=== PATIENT | female | born 1970 | race Caucasian/White ===

== ENCOUNTER 2017-07-22 11:55 | Emergency (ER) | payer BC ==
[2017-07-22] MEDS ORDERED: NA CHLORIDE 0.9% 1,000 ML ONE (13:33)
[2017-07-22] MEDS ORDERED: ONDANSETRON 4 MG/2 ML VIAL ONE (13:33)
[2017-07-22 13:41] LABS: Absolute Lymphocytes (CBC) 1.1 K/uL (0.7-4.9); Absolute Neutrophil 3.7 K/uL (1.8-8.0); Basophils % 0.3 % (0-1.3); Eosinophils % 1.1 % (0-4.4); Hematocrit 38.7 % (36.0-45.0); Lymphocytes % 18.5 % (15.3-44.8); MCH 30.6 pg (27.0-35.0); MCV 93.3 fL (80-100); MPV 8.9 fL (7.6-11.3); Monocytes % 17.6 % (3.3-12.3); RBC Red Blood Cell Count 4.15 M/uL (3.86-4.86)
[2017-07-22 13:59] LABS: Potassium 3.9 mEq/L (3.6-5.0)
[2017-07-22 14:05] LABS: Albumin 3.9 g/dL (3.2-5.5); Bilirubin Direct 0.1 mg/dL (0-0.2); Bilirubin Total 0.8 mg/dL (0.3-1.2); Protein, Total 7.4 g/dL (6.0-8.3)
[2017-07-22 14:59] LABS: Urine Blood TRACE (NEG); Urine Glucose NEGATIVE (NEG); Urine Protein NEGATIVE (NEG)
[2017-07-22 15:01] LABS: Urine Bacteria <20 /HPF (<20); Urine Culture Reflex Order NOT NEEDED; Urine RBC <5 /HPF (NONE SEEN)
--- NOTE | 2017-07-22 15:22 | RAD REPORT ---
EXAM DESCRIPTION: CTAbdomen Pelvis W Contrast - 07/22/2017 3:11 pm CLINICAL HISTORY: Abdominal pain. COMPARISON: None. TECHNIQUE: Biphasic CT imaging of the abdomen and pelvis was performed with 100 ml non-ionic IV cont rast. All CT scans are performed using dose optimization technique as appropriate and may include automated exposure control or mA/KV adjustment according to patient size. FINDINGS: Several nodules are noted in the left lower lobe, the largest measuring 12 x 12 mm (image 4/96). Mild fatty liver is noted. No focal mass or biliary dilatation. The spleen, pancreas, adrenal glands and kidneys are within normal limits. No bowel obstruction, free air, free fluid or abscess. Thickening of the colon is seen throughout its course. No pneumatosis coli. The appendix is normal. No evidence of significant lymphadenopathy. No suspicious bony findings. IMPRESSION: Mild diffuse pancolitis. No pneumatosis coli, intra-abdominal/pelvic abscess or free air /free fluid. Left lower lobe pulmonary nodule (12 x 12 mm). Further assessment of this finding is warranted with f ollow-up nonemergent CT chest and/or PET-CT examination.
[2017-07-22] MEDS ORDERED: CIPROFLOXACIN 400mg IV 400 MG/200 ML BAG IV ONE (15:44)
[2017-07-22] MEDS ORDERED: METRONIDAZOLE 500mg IVPB 500 MG/100 ML BAG IV ONE (15:44)
--- NOTE | 2017-07-22 16:21 | EDPHYS ---
Physician Documentation [facility] Name: Krista Greene Age: 46 yrs Sex: Female : 1970 Arrival Date: 07/22/2017 Time: 11:57 Bed 30 Private MD: Rajinder Carmona ED Physician Randal Jaimes HPI: 07/22 14:35 This 46 yrs old Female presents to ER via Ambulatory with complaints of rn Vomiting/Diarrhea. 14:35 The patient presents to the emergency department with nausea, vomiting, diarrhea, rn abdominal pain. Onset: The symptoms/episode began/occurred 2 week(s) ago. Possible causes: unknown. Severity of symptoms: At their worst the symptoms were moderate in the emergency department the symptoms are unchanged. The patient has experienced a previous episode. Reports LLQ abd pain assoc with nausea/vomiting/diarrhea, began 2 weeks ago, no fever, no trauma. . 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 - Social history:: Smoking status: Patient/guardian denies using tobacco. - Ebola Screening: : No symptoms or risks identified at this time. - Family history:: not pertinent. - Hospitalizations: : No recent hospitalization is reported. ROS: 14:35 Constitutional: Negative for fever, chills, and weight loss, Eyes: Negative for injury, rn pain, redness, and discharge, Neck: Negative for injury, pain, and swelling, Cardiovascular: Negative for chest pain, palpitations, and edema, Respiratory: Negative for shortness of breath, cough, wheezing, and pleuritic chest pain, Abdomen/GI: + abd pain/nausea/vomiting/diarrhea Back: Negative for injury and pain, MS/Extremity: Negative for injury and deformity, Skin: Negative for injury, rash, and discoloration, Neuro: Negative for headache, weakness, numbness, tingling, and seizure. Exam: 14:35 Constitutional: This is a well developed, well nourished patient who is awake, alert, rn and in no acute distress. Head/Face: Normocephalic, atraumatic. Cardiovascular: Regular rate and rhythm with a normal S1 and S2. No gallops, murmurs, or rubs. Normal PMI, no JVD. No pulse deficits. Respiratory: Lungs have equal breath sounds bilaterally, clear to auscultation and percussion. No rales, rhonchi or wheezes noted. No increased work of breathing, no retractions or nasal flaring. Abdomen/GI: soft, mild LLQ and LUQ tenderness, no rebound Skin: Warm, dry with normal turgor. Normal color with no rashes, no lesions, and no evidence of cellulitis. MS/ Extremity: Pulses equal, no cyanosis. Neurovascular intact. Full, normal range of motion. Equal circumference. Neuro: Awake and alert, GCS 15, oriented to person, place, time, and situation. Cranial nerves II-XII grossly intact. Motor strength 5/5 in all extremities. Sensory grossly intact. Cerebellar exam normal. Normal gait. Vital Signs: 12:03 BP 119 / 80; Pulse 89; Resp 18; Temp 98.3; Pulse Ox 98% ; Weight 65.77 kg; Height 5 ft. sv 4 in. (162.56 cm); Pain 2/10; 14:00 BP 124 / 66; Pulse 88; Resp 16; Pulse Ox 98% on R/A; kr2 17:07 BP 130 / 70; Pulse 68; Resp 16; Pulse Ox 97% on R/A; kr2 12:03 Body Mass Index 24.89 (65.77 kg, 162.56 cm) sv MDM: 13:11 Patient medically screened. rn 16:19 Differential diagnosis: Nonspecific abd pain, gastritis, pancreatitis, appendicitis, rn diverticulitis, viral gastroenteritis, gastroenteritis. Data reviewed: vital signs, nurses notes, lab test result(s), radiologic studies, CT scan. Counseling: I had a detailed discussion with the patient and/or guardian regarding: the historical points, exam findings, and any diagnostic results supporting the discharge/admit diagnosis, lab results, radiology results, the need for outpatient follow up, to return to the emergency department if symptoms worsen or persist or if there are any questions or concerns that arise at home. Response to treatment: the patient's symptoms have markedly improved after treatment, and as a result, I will discharge patient. Special discussion: Based on the patient's Hx, exam, and Dx evaluation, there is no indication for emergent surgery or inpatient Tx. It is understood by the patient/guardian that if the Sx's persist or worsen they need to return immediately for re-evaluation. I discussed with the patient/guardian in detail that at this point there is no indication for admission to the hospital. It is understood, however, that if the symptoms persist or worsen the patient needs to return immediately for re-evaluation. ED course: Offered observation, patient requests to go home, would rather go home, return precautions given and understood.. 07/22 13:11 Order name: Basic Metabolic Panel; Complete Time: 15:26 rn 07/22 13:11 Order name: CBC with Diff rn 07/22 13:11 Order name: Creatinine for Radiology; Complete Time: 15: rn 07/22 13:11 Order name: Hepatic Function; Complete Time: 15: rn 07/22 13:11 Order name: Lipase; Complete Time: 15: rn 07/22 13:11 Order name: Urine Microscopic Only; Complete Time: 15: rn 07/22 13:21 Order name: CT Abd/Pelvis - W/Contrast; Complete Time: 15:26 rn 07/22 13:42 Order name: Manual Differential EDMS 07/22 14:42 Order name: Urine Dipstick--Ancillary (enter results); Complete Time: 15:26 ag 07/22 14:42 Order name: Urine --Ancillary (enter results); Complete Time: 15:26 ag 07/22 13:11 Order name: Urine Test (obtain specimen); Complete Time: 15:09 rn 07/22 13:11 Order name: IV Saline Lock; Complete Time: 13:37 rn 07/22 13:11 Order name: Labs collected and sent; Complete Time: 13:37 rn 07/22 13:11 Order name: Urine Dipstick-Ancillary (obtain specimen); Complete Time: 15:09 rn Administered Medications: 13:37 Drug: Zofran 4 mg Route: IVP; Site: right antecubital; kr2 14:00 Follow up: Response: Nausea is decreased kr2 13:37 Drug: NS 0.9% 1000 ml Route: IV; Rate: 1000 ml; Site: right antecubital; kr2 15:30 Follow up: Response: No adverse reaction; IV Status: Completed infusion kr2 15:47 Drug: Cipro 400 mg Volume: 200 ml; Route: IVPB; Infused Over: 60 mins; Site: right kr2 antecubital; 17:08 Follow up: Response: No adverse reaction; IV Status: Completed infusion kr2 15:47 Drug: Flagyl 500 mg Volume: 100 ml; Route: IVPB; Rate: 200 ml/hr; Infused Over: 30 kr2 mins; Site: right antecubital; 16:30 Follow up: Response: No adverse reaction; IV Status: Completed infusion kr2 Disposition: 07/22/17 16:21 Discharged to Home. Impression: Colitis. - Condition is Stable. - Discharge Instructions: Diarrhea, Nausea and Vomiting. - Prescriptions for Zofran ODT 4 mg Oral tablet,disintegrating - place 1 tablet by TRANSLINGUAL route every 8-10 hours As needed; 20 tablet. Cipro 500 mg Oral Tablet - take 1 tablet by ORAL route every 12 hours for 10 days; 20 tablet. Flagyl 500 mg Oral Tablet - take 1 tablet by ORAL route every 8 hours for 10 days; 30 tablet. - Medication Reconciliation Form, Thank You Letter, Antibiotic Education, Prescription Opioid Use, Work release form form. - Follow up: Gisselle Grajeda MD; When: As needed; Reason: Recheck today's complaints, Re-evaluation by your physician. - Problem is new. - Symptoms have improved. Signatures: Dispatcher [employer] Shivani Mai RN RN sv Nieto, Roman, MD MD rn Reaves, Karey, RN RN kr2 Corrections: (The following items were deleted from the chart) 17:09 16:21 07/22/2017 16:21 Discharged to Home. Impression: Colitis. Condition is Stable. kr2 Forms are Medication Reconciliation Form, Thank You Letter, Antibiotic Education, Prescription Opioid Use. Follow up: Gisselle Grajeda; When: As needed; Reason: Recheck today's complaints, Re-evaluation by your physician. Problem is new. Symptoms have improved. rn
--- NOTE | 2017-07-22 16:21 | ER ---
Nurse's Notes [facility] Name: Krista Greene Age: 46 yrs Sex: Female : 1970 Arrival Date: 07/22/2017 Time: 11:57 Bed 30 Private MD: Rajinder Carmona Diagnosis: Colitis Presentation: 07/22 12:02 Presenting complaint: Patient states: dull LLQ abd pain, vomiting, diarrhea x 2 weeks. sv Transition of care: patient was not received from another setting of care. Onset of symptoms was July 08, 2017. Care prior to arrival: None. 12:02 Method Of Arrival: Ambulatory sv 12:02 Acuity: TAYLA 3 sv 13:30 Risk Assessment: Do you want to hurt yourself or someone else? Patient reports no kr2 desire to harm self or others. Initial Sepsis Screen: Does the patient meet any 2 criteria? No. Patient's initial sepsis screen is negative. Does the patient have a suspected source of infection? No. Patient's initial sepsis screen is negative. 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 - Social history:: Smoking status: Patient/guardian denies using tobacco. - Ebola Screening: : No symptoms or risks identified at this time. - Family history:: not pertinent. - Hospitalizations: : No recent hospitalization is reported. Screenin:49 Abuse screen: Denies threats or abuse. Denies injuries from another. Nutritional kr2 screening: No deficits noted. Tuberculosis screening: No symptoms or risk factors identified. Fall Risk None identified. Assessment: 13:30 General: Appears in no apparent distress. comfortable, well groomed, well developed, kr2 well nourished, Behavior is calm, cooperative, appropriate for age. Pain: Complains of pain in left upper and lower quadrants Pain does not radiate. Pain currently is 6 out of 10 on a pain scale. Quality of pain is described as crampy, tender, Pain began 2 weeks ago Is continuous, Alleviated by nothing. Neuro: Level of Consciousness is awake, alert, obeys commands, Oriented to person, place, time, situation, Appropriate for age. Cardiovascular: Capillary refill < 3 seconds in bilateral fingers Patient's skin is warm and dry. Respiratory: Airway is patent Respiratory effort is even, unlabored, Respiratory pattern is regular, symmetrical. GI: Abdomen is flat, non-distended, Reports diarrhea, nausea, vomiting. : Denies burning with urination. EENT: Oral mucosa is moist. Derm: Skin is intact, is healthy with good turgor, Skin is pink, warm \T\ dry. Musculoskeletal: Circulation, motion, and sensation intact. 15:09 Reassessment: Patient appears in no apparent distress at this time. Patient and/or kr2 family updated on plan of care and expected duration. Pain level reassessed. Patient is alert, oriented x 3, equal unlabored respirations, skin warm/dry/pink. Patient states symptoms have improved. 16:00 Reassessment: Patient appears in no apparent distress at this time. Patient and/or kr2 family updated on plan of care and expected duration. Pain level reassessed. Patient is alert, oriented x 3, equal unlabored respirations, skin warm/dry/pink. Patient denies pain at this time. Patient states symptoms have improved. 17:04 Reassessment: Patient appears in no apparent distress at this time. Patient and/or kr2 family updated on plan of care and expected duration. Pain level reassessed. Patient is alert, oriented x 3, equal unlabored respirations, skin warm/dry/pink. Patient denies pain at this time. Patient states symptoms have improved. Vital Signs: 12:03 BP 119 / 80; Pulse 89; Resp 18; Temp 98.3; Pulse Ox 98% ; Weight 65.77 kg; Height 5 ft. sv 4 in. (162.56 cm); Pain 2/10; 14:00 BP 124 / 66; Pulse 88; Resp 16; Pulse Ox 98% on R/A; kr2 17:07 BP 130 / 70; Pulse 68; Resp 16; Pulse Ox 97% on R/A; kr2 12:03 Body Mass Index 24.89 (65.77 kg, 162.56 cm) sv ED Course: 11:57 Patient arrived in ED. as 11:57 Rajinder Carmona DO is Private Physician. as 12:03 Triage completed. sv 12:05 Arm band placed on left wrist. sv 12:07 Patient placed in waiting room, Patient notified of wait time. sv 13:07 Vanessa Gage, RN is Primary Nurse. kr2 13:11 Randal Jaimes MD is Attending Physician. rn 13:30 Patient has correct armband on for positive identification. Bed in low position. Call kr2 light in reach. Side rails up X 1. Pulse ox on. NIBP on. Door closed. Warm blanket given. Pillow given. Head of bed elevated. 13:30 Inserted saline lock: 20 gauge in right antecubital area, using aseptic technique. kr2 Blood collected. 13:49 No provider procedures requiring assistance completed. kr2 14:[address] via wheelchair. sw 15:08 CT completed. Patient tolerated procedure well. Note: CT MACHINE MALFUNCTIONED DURING ARTERIAL PHASE, HAD TO ABORT SCAN AND RE LOAD POWER INJECTOR W/ 50CC ISOVUE, CONFIRMED W/ DR. LAGUNA THAT IT IS OK TO RE INJECT PATIENT FOR REMAINDER OF EXAM. . Patient moved back from CT. 15:11 CT Abd/Pelvis - W/Contrast In Process Unspecified. EDMS 16:20 Gisselle Grajeda MD is Referral Physician. rn 17:06 IV discontinued, intact, bleeding controlled, No redness/swelling at site. Pressure kr2 dressing applied. Administered Medications: 13:37 Drug: Zofran 4 mg Route: IVP; Site: right antecubital; kr2 14:00 Follow up: Response: Nausea is decreased kr2 13:37 Drug: NS 0.9% 1000 ml Route: IV; Rate: 1000 ml; Site: right antecubital; kr2 15:30 Follow up: Response: No adverse reaction; IV Status: Completed infusion kr2 15:47 Drug: Cipro 400 mg Volume: 200 ml; Route: IVPB; Infused Over: 60 mins; Site: right kr2 antecubital; 17:08 Follow up: Response: No adverse reaction; IV Status: Completed infusion kr2 15:47 Drug: Flagyl 500 mg Volume: 100 ml; Route: IVPB; Rate: 200 ml/hr; Infused Over: 30 kr2 mins; Site: right antecubital; 16:30 Follow up: Response: No adverse reaction; IV Status: Completed infusion kr2 Outcome: 16:21 Discharge ordered by . rn 17:05 Discharged to home ambulatory. kr2 17:05 Condition: good 17:05 Discharge instructions given to patient, family, Instructed on discharge instructions, follow up and referral plans. medication usage, Demonstrated understanding of instructions, follow-up care, medications, Prescriptions given X 3. 17:09 Patient left the ED. kr2 Signatures: Dispatcher [employer] EDShivani Castillo RN RN sv Martinez, Amelia as Nieto, Roman, MD MD rn Warren, Shannon sw Reaves, Karey, RN RN kr2 Corrections: (The following items were deleted from the chart) 12:06 12:02 Presenting complaint: Patient states: abd pain, vomiting, diarrhea x 2 weeks. sv sv 12:06 12:03 BP 119 / 80; Pulse 89bpm; Resp 18bpm; Pulse Ox 98%; 65.77 kg; Height 5 ft. 4 in.; sv BMI: 24.8; Pain 2/10; sv
[2017-07-22 20:55] LABS: Blood Morphology Comment NOT SEEN (NOT SEEN); Platelet Estimate ADEQ; Toxic Granulation PRESENT
== END 2017-07-22 17:09 | disposition home or self-care (01) ==
LOC: ER 11:55
DX: K52.9 Noninfective gastroenteritis and colitis, unspecified (principal); Z88.0 Allergy status to penicillin
CPT/HCPCS: 36415; 74177; 80048; 80076; 81003; 81015; 81025; 83690; 85025; 96361; 96365; 96368; 96375; 99284; J0744; J2405; J7030; Q9967